=== PATIENT | male | born 2000 | race African-American/Black ===

== ENCOUNTER 2025-09-08 16:17 | Emergency (ER) | payer SELFPAY | END 2025-09-08 17:33 | disposition home or self-care (01) | LOC: ERS 16:17 | DX: R09.81 Nasal congestion (principal); F17.210 Nicotine dependence, cigarettes, uncomplicated; F17.290 Nicotine dependence, other tobacco product, uncomplicated | CPT/HCPCS: 87428; 99283 ==

== ENCOUNTER 2025-09-30 11:56 | Emergency (ER) | payer SELFPAY ==
[2025-09-30] MEDS ORDERED: Ondansetron PF 4 MG/2 ML Vial ONE (13:25)
[2025-09-30] MEDS ORDERED: Dicyclomine 20 MG TAB ONE (13:25)
[2025-09-30 13:49] LABS: #Basophils 0.04 10x3/uL (0.0-0.2); #Eosinophils 0.12 10x3/uL (0.0-0.7); #Monocytes 0.90 10x3/uL (0.11-0.59); #Neutrophils 6.11 10x3/uL (1.40-6.50); %Basophils 0.4 % (0.0-1.0); %Eosinophils 1.3 % (0.0-10.0); %Lymphocytes 20.1 % (21.0-51.0); %Monocytes 10.0 % (0.0-10.0); %Neutrophils 68.0 % (42.0-75.0); Hematocrit 48.2 % (42.0-52.0); Hemoglobin 16.1 g/dL (14.0-18.0); Mean Corpuscular Hemoglobin 29.2 pg (27.0-31.0); Mean Corpuscular Volume 87.5 fL (78.0-98.0); Platelet Count 264 10x3/uL (130-400); Red Blood Cell (RBC) Count 5.51 mill/uL (4.70-6.10); White Blood Cell (WBC) Count 9.00 10x3/uL (4.8-10.8)
[2025-09-30 14:04] LABS: ALT (SGPT) 16 U/L (Less than 45); AST (SGOT) 30 U/L (11-34); Albumin 4.5 g/dL (3.1-4.5); Alkaline Phosphatase 52 U/L (40-110); Anion Gap 14 mmol/L (10-20); BUN (Urea Nitrogen) 6 mg/dL (8.9-20.6); Bilirubin, Total 1.1 mg/dL (0.3-1.2); Calc. Creatinine Clearance 0 mL/min (70-130); Calcium 9.7 mg/dL (7.8-10.44); Carbon Dioxide 25 mmol/L (22-29); Chloride 104 mmol/L (98-107); Globulin 3.3 g/dL (2.4-3.5); Glucose 82 mg/dL (70-105); Potassium 4.4 mmol/L (3.5-5.1); Sodium 139 mmol/L (136-145)
== END 2025-09-30 14:50 | disposition home or self-care (01) ==
LOC: ERS 11:56
DX: K52.9 Noninfective gastroenteritis and colitis, unspecified (principal); F17.210 Nicotine dependence, cigarettes, uncomplicated
CPT/HCPCS: 80053; 85025; 96361; 96374; J2405